=== PATIENT | female | born 1955 | race African-American/Black ===

== ENCOUNTER 2018-01-09 07:53 | Day surgery (SDC) | END 2018-01-09 12:08 | disposition home or self-care (01) ==

== ENCOUNTER → 2018-06-24 | Outpatient (CLI) | payer BC ==
[~2018-06-24] MED LIST: AMLODIPINE; CALCIUM; SIMVASTATIN; VITAMIN D
--- NOTE | 2018-06-24 12:33 | RADRPT ---
Echocardiogram Report Patient Name: NITHIN PANPatient ID: [id number] : 1955 (63y 1m)Study Date: 06/24/2018 11:08:03 AM Gender: FAccession #: [id number] Tech: Merlin Moore RDCS Location: EKG Ref.Physician: MOOK MONZON Height(Cm): BSA: Weight(Kg): Quality: AdequateAccount #: Procedures: Echocardiographic Report: Transthoracic echocardiogram with complete 2D, M-Mode, and doppler examination. Indications: Jin Syndrome. Measurements: 2D/M Mode Doppler Measurement Value Normal Range Measurement Value Normal Range LVIDd 2D 3.5 [ 3.8 - 5.2 ] cm AV Peak Bean 1.3 [ 100.0 - 170.0 ] cm/sec LVIDs 2D 2.0 [ 2.2 - 3.5 ] cm AV Peak PG 6.0 [ 2.0 - 9.0 ] mmHg LVPWd 2D 0.8 [ 0.6 - 0.9 ] cm LVOT Peak Bean 1.0 [ 70.0 - 110.0 ] cm/sec IVSd 2D 0.8 [ 0.6 - 0.9 ] cm LVOT Peak PG 4.0 [ 2.0 - 6.0 ] mmHg AoR Diam 2D 2.3 [ 2.3 - 3.1 ] cm MV E Peak Bean 0.7 [ 60.0 - 130.0 ] cm/sec EDV 2D 49.1 [ 46.0 - 106.0 ] ml MV A Peak Bean 1.0 [ 100.0 - 120.0 ] cm/sec ESV 2D 13.4 [ 14.0 - 42.0 ] ml MV E/A 0.7 [ 0.8 - 1.5 ] ratio EF 2D 72.7 [ 54.0 - 74.0 ] percent MV Decel Time 211 [ 104 - 258 ] msec LA Dimen 2D 2.6 [ 2.7 - 3.8 ] cm Lat E` Bean 0.1 [ 10.0 - 15.0 ] cm/sec Lateral E/E` 10.0 [ 1.0 - 2.0 ] ratio MV E/A 0.7 [ 0.8 - 1.5 ] ratio TR Peak Bean 2.8 [ 100.0 - 280.0 ] cm/sec TR Peak PG 31.0 mmHg RVSP 34.0 [ 10.0 - 36.0 ] mmHg RA Pressure 3.0 mmHg Findings: Left Ventricle: Normal left ventricular systolic function. Normal left ventricular cavity size. Normal left ventricular wall thickness. Ejection fraction is visually estimated at 65 %. Tissue Doppler/Mitral Doppler indices are consistent with impaired relaxation (Stage I diastolic dysfunction). Right Ventricle: Normal right ventricular size. Normal right ventricular systolic function. Left Atrium: The left atrium is normal in size. Right Atrium: The right atrium is normal in size. Mitral Valve: Mitral valve leaflets appear mildly thickened. Mild mitral annular calcification. Trace mitral regurgitation. Aortic Valve: Normal appearance of the aortic valve. No significant aortic stenosis or insufficiency. Tricuspid Valve: Normal appearance of the tricuspid valve. Estimated peak PA systolic pressure 34 mmHg. There is trace tricuspid regurgitation. Pulmonic Valve: Normal pulmonic valve appearance. Pericardium: Normal pericardium with no significant pericardial effusion. Aorta: Normal aortic root. IVC: Normal size and normal respiratory collapse consistent with normal right atrial pressure. Conclusions: Normal left ventricular systolic function. Normal left ventricular cavity size. Normal left ventricular wall thickness. Ejection fraction is visually estimated at 65 %. Tissue Doppler/Mitral Doppler indices are consistent with impaired relaxation (Stage I diastolic dysfunction). Mitral valve leaflets appear mildly thickened. Mild mitral annular calcification. Trace mitral regurgitation. Normal appearance of the aortic valve. No significant aortic stenosis or insufficiency. Normal appearance of the tricuspid valve. Estimated peak PA systolic pressure 34 mmHg. There is trace tricuspid regurgitation. Electronically Signed By: Emanuel Puga 2018-06-24 12:32:59 PST
== END | disposition home or self-care (01) ==
LOC: U/S 09:34
PROVIDERS: ATTEND Internal Medicine Endocrinology, Diabetes & Metabolism
DX: E21.3 Hyperparathyroidism, unspecified (principal); M81.0 Age-related osteoporosis without current pathological fracture; Q96.0 Karyotype 45, X
CPT/HCPCS: 76775; 93306

== ENCOUNTER 2018-07-08 06:13 | Day surgery (SDC) | payer BC ==
[2018-07-08] VITALS (14 sets, daily range): BP systolic 104–138; BP diastolic 68–92; PULSE 76–90; RESP 10–25; Ht 147.3 cm; Wt 54.0 kg
[~2018-07-08] VITALS: Ht 147.3 cm; Wt 54.0 kg
[2018-07-08] MEDS ORDERED: POLYMYXIN/BACITRACIN 1L IRRIG ONE (06:51)
[2018-07-08] MEDS ORDERED: LIDOCAINE 2% (MDV) 20 ML INJ ONE (06:51)
[2018-07-08] MEDS ORDERED: BUPIVACAINE 0.5% (SDV) 30 ML INJ ONE (06:51)
--- NOTE | 2018-07-08 07:43 | PREAC ---
Date/Time of Note Date/Time of Note DATE: 07/08/18 TIME: 07:40 Anesthesia Eval and Record Evaluation Time Pre-Procedure Interview DATE: 07/08/18 TIME: 07:40 Age 63 Sex female NPO: 8 hrs Preoperative diagnosis Left Toe Hyperpigmentation Planned procedure Left Toe Biopsy Past Medical History Past Medical History: Includes Cardio: HTN, Dyslipidemia Endo: Other (Jin Syndrom, Hyperparathyroidism history) Surgery & Anesthesia Issues No known issue Meds Anticoagulation: No Beta Mario within 24 hr: No Reason Beta Mario not given: Pt. not on B-Mario Reported Medications [Calcium] No Conflict Check 01/09/18 [Vitamin D] No Conflict Check 01/09/18 [Simvastatin] No Conflict Check 01/09/18 [Amlodipine ] No Conflict Check 01/09/18 Meds reviewed: Yes Allergies Coded Allergies: No Known Allergy (Unverified , 10/21/13) Allergies Reviewed: Yes Labs/Studies Labs Reviewed: Reviewed by anesthesiologist test: N/A Studies: ECG (n/a), CXR (n/a) Pre-procedure Exam Last vitals Vital Signs Date Temp Pulse Resp B/P (MAP) Pulse Ox O2 O2 Flow FiO2 Time Delivery Rate 07/08/18 98.0 80 14 125/76 99 Room Air 07:29 (92) Airway: Adequate mouth opening, Adequate thyromental dist Mallampati: Mallampati II Teeth: Normal Lung: Normal Heart: Normal ASA Physical Status ASA physical status: 3 Emergency: None Planned Anesthetic General/MAC: LMA, MAC Nerve block: Sciatic (left) Planned Pain Management Single shot nerve block, Parenteral pain med Pre-operative Attestations Prior to commencing anesthesia and surgery, the patient was re-evaluated, there was verification of: *The patient's identity *The results of appropriate recent lab work and preoperative vital signs *The above evaluation not changing prior to induction *Anesthetic plan, risk benefits, alternative and complications discussed with patient/family; questions answered; patient/family understands, accepts and wishes to proceed. AHILEY MUJICA MD Jul 08, 2018 07:43
--- NOTE | 2018-07-08 07:44 | HPN ---
Date/Time of Note Date/Time of Note DATE: 07/08/18 TIME: 07:44 Interval H&P Admission Note Pt. seen H&P reviewed: No system changes CHELSIE SAUNDERS DPM Jul 08, 2018 07:44
[2018-07-08] MEDS ORDERED: PROPOFOL 20 ML ONE (07:49)
[2018-07-08] MEDS ORDERED: MIDAZOLAM 1 MG/ML 2 ML INJ ONE (07:49)
[2018-07-08] MEDS ORDERED: FENTAnyl 50 MCG/ML VIAL ONE (07:49)
[2018-07-08] MEDS ORDERED: CEFAZOLIN 1 GM INJ ONE (07:49)
[2018-07-08] MEDS ORDERED: ROPIVACAINE 0.5 % 30 ML VIAL ONE (07:54)
[2018-07-08] MEDS ORDERED: HYDROmorphONE 1 MG/5 ML IV SYRINGE IV PRN ×3 (08:00)
[2018-07-08] MEDS ORDERED: OXYCODONE/ACETAMINOPHEN (5/325) TAB PO PRN (08:00)
[2018-07-08] MEDS ORDERED: METOCLOPRAMIDE 10 MG INJ IV PRN (08:00)
[2018-07-08] MEDS ORDERED: ONDANSETRON 4 MG INJ IV PRN (08:00)
[2018-07-08] MEDS ORDERED: LABETALOL HCL 20MG INJ IV PRN (08:00)
[2018-07-08] MEDS ORDERED: FENTAnyl 50 MCG/ML VIAL IV PRN ×3 (08:00)
[2018-07-08] MEDS ORDERED: EPHEDrine SULFATE 50 MG/5 ML SYG IV PRN (08:00)
[2018-07-08] MEDS ORDERED: hydrALAzine 20 MG INJ IV PRN (08:00)
[2018-07-08] MEDS ORDERED: NALOXONE (0.4 MG/ML) INJ ONE (08:15)
[2018-07-08] MEDS ORDERED: KETOROLAC 30 MG INJ ONE (08:16)
[2018-07-08] MEDS ORDERED: METOCLOPRAMIDE 10 MG INJ ONE (08:16)
[2018-07-08] MEDS ORDERED: DEXAMETHASONE 4 MG/ML 5 ML INJ ONE (08:16)
[2018-07-08] MEDS ORDERED: ONDANSETRON 4 MG INJ ONE (08:16)
--- NOTE | 2018-07-08 08:21 | PAC ---
Date/Time of Note Date/Time of Note DATE: 07/08/18 TIME: 08:21 Post-Anesthesia Notes Post-Anesthesia Note Last documented vital signs Vital Signs Date Temp Pulse Resp B/P (MAP) Pulse Ox O2 O2 Flow FiO2 Time Delivery Rate 07/08/18 98.0 80 14 125/76 99 Room Air 08:29 (92) Activity: WNL Respiratory function: WNL Cardiovascular function: WNL Mental status: Baseline Pain reasonably controlled: Yes Hydration appropriate: Yes Nausea/Vomiting absent: Yes HAILEY MUJICA MD Jul 08, 2018 08:21
--- NOTE | 2018-07-08 08:31 | OPR ---
Date/Time of Note Date/Time of Note DATE: 07/08/18 TIME: 08:21 Operative Report Procedure Date: Jul 08, 2018 Preoperative Diagnosis Left second toenail pigmentation Postoperative Diagnosis Left second toenail pigmentation Operation/Procedure Performed Left second toenail biopsy Surgeon see signature line Arboriculturist None Anesthesia Type: MAC Estimated Blood Loss: minimal Transfusion none Specimen Hyperpigmented toenail left second toe Grafts/Implants none Complications none Pt Condition Post Procedure: stable Disposition: PACU Indications This is a pleasant 63-year-old female patient who has been suffering with hyperpigmented toenail of the second toe for several months. Recommended procedure is toenail biopsy to rule out malignancy. Risks and complications of this type of surgery was discussed with patient in great detail. Risks and complications discussed include, but are not limited to, postoperative infection, postoperative pain, chronic pain and disability, hardware failure, failure of surgery to correct the problem, need for additional surgical procedures, toenail changes, onychomycosis, deep venous thrombosis, gait disturbance, problems with shoegear, limitation of activities, limb loss and loss of life. Patient understands the discussion and agrees to the procedure. An informed consent was obtained, signed and placed in the chart. No guarantee or warrantee was given or implied as to the outcome of the procedure either in verbal or written form. Procedure Description The patient was seen in the preoperative unit. The proposed surgery was discussed with patient in great detail. Risks and complications of this type of surgery was discussed with patient in great detail. Opportunity was given to patient to ask questions and all questions were answered. The patient acknowledges understanding of the discussion. An informed consent was then obtained, signed and placed in the chart. Patient was taken to the operating room and was placed on the operating table in the supine position. All bony prominences were padded properly. A timeout was called by the circulating nurse. Everyone in the operating room was agreeable to the timeout. The patient was then placed under moderate sedation along with local anesthesia of left second toe by the anesthesiologist. The left foot was scrubbed,l prepped, and draped in the usual aseptic manner. Attention was directed to the left second toe. 50% of the nail was noted to be hyperpigmented. A [place] elevator was used to lift the nail off of the nailbed and using a double-action bone cutter, the pigmented nail was cut and removed. The nail will be submitted to pathology for further evaluation. The nail bed was examined was found to be 100% pink tissue with no pigmentation noted. There was no bleeders noted. Copious amounts of sterile normal saline was used to irrigate the left second toe. Sterile dressing was applied to the left second toe and left foot. The patient tolerated procedure and anesthesia well. The patient was transferred to the recovery room with vital signs stable and vascular status intact to left lower extremity. The patient will be discharged home after po stoperative monitoring. Postoperative orders were written. Patient will be followed up in the office in 1 week. CHELSIE SAUNDERS DPM Jul 08, 2018 08:31
== END 2018-07-08 10:35 | disposition home or self-care (01) ==
LOC: SDS 06:13
PROVIDERS: ATTEND Podiatrist Foot & Ankle Surgery
DX: L60.8 Other nail disorders (principal); E78.5 Hyperlipidemia, unspecified; I10 Essential (primary) hypertension
CPT/HCPCS: 11755; 88304; J0690; J1100; J1885; J2250; J2310; J2405; J2765; J2795; J3010; L3260; Z7512; Z7610